=== PATIENT | female | born 1990 | race Caucasian/White ===

== ENCOUNTER 2016-07-28 19:44 | Emergency (ER) | payer OTHER ==
[~2016-07-28] VITALS: Ht 180.3 cm; Wt 111.1 kg
[~2016-07-28 19:44] MED LIST: AMOXIL500 MG PO; ANAPROX DS550 MG PO; BACTRIM DS 8001 TA1 PO; CYCLOBENZAPRINE10 MG PO; IBU-8800 MG PO; MACROBID100 M1 PO; MEDROL DOSEPAK4 MG PO; MOTRIN800 MG PO; NAPROSYN500 MG PO; NKHM; ORPHENADRINE C100 M1 PO; PARAFON FORTE500 MG PO; PREDNISONE20 MG PO; TRAMADOL HCL50 MG PO
[2016-07-28 20:15] LABS: BILIRUBIN NEGATIVE (NEGATIVE); BLOOD 2+ (NEGATIVE); CLARITY CLEAR (CLEAR); COLOR YELLOW (YELLOW); GLUCOSE NEGATIVE (NEGATIVE); KETONE NEGATIVE (NEGATIVE); LEUKO ESTERASE NEGATIVE (NEGATIVE); NITRITE NEGATIVE (NEGATIVE); PROTEIN 1+ (NEGATIVE); SPECIFIC GRAVITY >= 1.030 (1.005-1.030)
[2016-07-28] MEDS ORDERED: ULTRAM50 MG PO (20:40)
[2016-07-28] MEDS ORDERED: CYCLOBENZAPRINE10 MG PO (20:40)
[2016-07-28 20:41] LABS: BACTERIA TRACE; URINE REFLEX COMMENT YES (NO)
== END 2016-07-28 20:50 | disposition home or self-care (01) ==
LOC: ED 19:44
PROVIDERS: Nurse Practitioner Family
DX: M54.5 Low back pain (principal)

== ENCOUNTER 2016-08-21 12:08 | Emergency (ER) | payer OTHER ==
[~2016-08-21] VITALS: Ht 180.3 cm; Wt 112.9 kg
[~2016-08-21 12:08] MED LIST changes: +ULTRAM50 MG PO
[2016-08-21] MEDS ORDERED: AUGMENTIN 875875 MG PO (13:15)
[2016-08-21] MEDS ORDERED: Peridex 473 ML473 ML PO (13:15)
[2016-08-21] MEDS ORDERED: Motrin,Rufen800 MG PO (13:15)
== END 2016-08-21 13:24 | disposition home or self-care (01) ==
LOC: ED 12:08
DX: K08.89 Other specified disorders of teeth and supporting structures (principal)

== ENCOUNTER 2016-09-10 21:49 | Emergency (ER) | payer OTHER ==
[~2016-09-10] VITALS: Ht 180.3 cm; Wt 113.4 kg
[~2016-09-10 21:49] MED LIST changes: +AUGMENTIN 875875 MG PO; +Motrin,Rufen800 MG PO; +Peridex 473 ML473 ML PO
== END 2016-09-10 23:44 | disposition home or self-care (01) ==
LOC: ED 21:49
DX: S05.02XA Injury of conjunctiva and corneal abrasion without foreign body, left eye, initial encounter (principal); W22.8XXA Striking against or struck by other objects, initial encounter; Y93.89 Activity, other specified; Y92.9 Unspecified place or not applicable; Y99.9 Unspecified external cause status

== ENCOUNTER 2016-10-11 21:40 | Emergency (ER) | payer OTHER ==
[~2016-10-11] VITALS: Ht 180.3 cm; Wt 108.9 kg
[2016-10-11] MEDS ORDERED: Motrin,Rufen800 MG PO (22:17)
[2016-10-11] MEDS ORDERED: CYCLOBENZAPRINE5 M3 PO (22:17)
== END 2016-10-11 22:20 | disposition home or self-care (01) ==
LOC: ED 21:40
DX: G89.29 Other chronic pain (principal); M54.6 Pain in thoracic spine

== ENCOUNTER 2016-11-03 09:52 | Emergency (ER) | payer OTHER ==
[~2016-11-03] VITALS: Ht 177.8 cm; Wt 108.9 kg
[~2016-11-03 09:52] MED LIST changes: +CYCLOBENZAPRINE5 M3 PO
[2016-11-03] MEDS ORDERED: NAPROSYN500 MG PO (10:28)
[2016-11-03] MEDS ORDERED: AMOXICILLIN500 M2 PO (10:28)
== END 2016-11-03 10:52 | disposition home or self-care (01) ==
LOC: ED 09:52
DX: K08.89 Other specified disorders of teeth and supporting structures (principal)

== ENCOUNTER 2016-12-27 14:54 | Emergency (ER) | payer OTHER ==
[~2016-12-27] VITALS: Ht 175.2 cm; Wt 108.9 kg
[~2016-12-27 14:54] MED LIST changes: +AMOXICILLIN500 M2 PO
[2016-12-27 15:16] LABS: BILIRUBIN NEGATIVE (NEGATIVE); BLOOD TRACE-INTACT (NEGATIVE); CLARITY SL CLOUDY (CLEAR); COLOR YELLOW (YELLOW); GLUCOSE NEGATIVE (NEGATIVE); KETONE TRACE (NEGATIVE); LEUKO ESTERASE 1+ (NEGATIVE); NITRITE NEGATIVE (NEGATIVE); SPECIFIC GRAVITY 1.025 (1.005-1.030)
[2016-12-27 15:22] LABS: BACTERIA TRACE; EPITHELIAL CELLS 31-40; MUCOUS 2+
[2016-12-27] MEDS ORDERED: MACROBID100 M1 PO (16:39)
== END 2016-12-27 16:57 | disposition home or self-care (01) ==
LOC: ED 14:54
PROVIDERS: Physician Assistant
DX: N39.0 Urinary tract infection, site not specified (principal); F17.200 Nicotine dependence, unspecified, uncomplicated; Z33.1 Pregnant state, incidental

== ENCOUNTER 2017-07-31 10:11 | Emergency (ER) | payer OTHER ==
[~2017-07-31] VITALS: Ht 180.3 cm; Wt 104.3 kg
[2017-07-31] MEDS ORDERED: Peridex 473 ML473 ML PO (10:16)
[2017-07-31] MEDS ORDERED: PENICILLIN VK500 MG PO (10:16)
[2017-07-31] MEDS ORDERED: ZOFRAN4 MG PO (10:16)
[2017-07-31] MEDS ORDERED: NAPROSYN500 MG PO (10:16)
== END 2017-07-31 10:30 | disposition home or self-care (01) ==
LOC: ED 10:11
DX: K02.9 Dental caries, unspecified (principal); R03.0 Elevated blood-pressure reading, without diagnosis of hypertension; G89.29 Other chronic pain

== ENCOUNTER 2017-08-27 15:08 | Emergency (ER) | payer OTHER ==
[~2017-08-27] VITALS: Ht 170.1 cm; Wt 108.9 kg
[~2017-08-27 15:08] MED LIST changes: +PENICILLIN VK500 MG PO; +ZOFRAN4 MG PO
[2017-08-27] MEDS ORDERED: IBUPROFEN600 MG PO (15:33)
[2017-08-27] MEDS ORDERED: AUGMENTIN 875875 MG PO (15:33)
== END 2017-08-27 15:30 | disposition home or self-care (01) ==
LOC: ED 15:08
DX: K02.9 Dental caries, unspecified (principal)

== ENCOUNTER 2018-04-15 11:53 | Emergency (ER) | payer OTHER ==
[~2018-04-15] VITALS: Ht 180.3 cm; Wt 97.5 kg
[~2018-04-15 11:53] MED LIST changes: +IBUPROFEN600 MG PO
[2018-04-15 13:06] LABS: BASO % 0.2 % (0.0-1.0); EOS # 0.1 10*3/uL (0.0-0.4); EOS % 0.4 % (1.0-4.0); HEMATOCRIT 40.9 % (37.0-47.0); HEMOGLOBIN 13.7 g/dl (12.0-16.0); LYMPH # 0.9 10*3/uL (1.3-4.4); LYMPH % 5.8 % (27.0-41.0); MEAN CELL VOLUME 83.5 fl (81.0-99.0); MEAN CORPUSCULAR HGB CONC 33.5 g/dl (33.0-37.0); MEAN PLATELET VOLUME 10.5 fl (9.6-12.3); MONO # 0.7 10*3/uL (0.1-1.0); NEUT % 88.3 % (47.0-73.0); PLATELET COUNT AUTOMATED 180 10*3/uL (130-400); RED CELL DISTRI WIDTH 13.2 % (0-14.5); WHITE BLOOD COUNT 14.8 10*3/uL (4.8-10.8)
[2018-04-15 13:20] LABS: ALBUMIN 3.5 gm/dl (3.1-4.5); ALKALINE PHOSPHATASE 104 U/L (45-117); BUN 9 mg/dl (7-24); CHLORIDE 103 mmol/L (98-107); CREATININE 0.75 mg/dL (0.55-1.02); POTASSIUM 3.3 mmol/L (3.5-5.1); SGOT/AST 20 IU/L (3-35); SGPT/ALT 28 U/L (12-78); SODIUM 137 mmol/L (136-145); TOTAL PROTEIN 8.3 gm/dL (6.4-8.2)
[2018-04-15] MEDS ORDERED: PREDNISONE10 MG PO (14:41)
[2018-04-15] MEDS ORDERED: FLONASE ALLERG9.9 ML NAS (14:41)
[2018-04-15] MEDS ORDERED: CLARITIN10 MG PO (14:41)
== END 2018-04-15 14:45 | disposition home or self-care (01) ==
LOC: ED 11:53
PROVIDERS: Nurse Practitioner Family
DX: B27.90 Infectious mononucleosis, unspecified without complication (principal); R03.0 Elevated blood-pressure reading, without diagnosis of hypertension; G89.29 Other chronic pain; Z79.2 Long term (current) use of antibiotics; Z79.899 Other long term (current) drug therapy

== ENCOUNTER 2018-09-24 20:35 | Emergency (ER) | payer OTHER ==
[~2018-09-24] VITALS: Ht 180.3 cm; Wt 108.9 kg
[~2018-09-24 20:35] MED LIST changes: +CLARITIN10 MG PO; +FLONASE ALLERG9.9 ML NAS; +PREDNISONE10 MG PO
[2018-09-24] MEDS ORDERED: AMOXICILLIN500 M2 PO (20:41)
== END 2018-09-24 21:05 | disposition home or self-care (01) ==
LOC: ED 20:35
DX: H60.91 Unspecified otitis externa, right ear (principal); H92.02 Otalgia, left ear

== ENCOUNTER 2019-05-02 19:04 | Emergency (ER) | payer OTHER ==
[~2019-05-02] VITALS: Ht 180.3 cm; Wt 108.9 kg
[2019-05-02 20:27] LABS: HEMATOCRIT 39.1 % (37.0-47.0); HEMOGLOBIN 12.8 g/dl (12.0-16.0); MEAN CELL VOLUME 84.1 fl (81.0-99.0); MEAN CORPUSCULAR HGB 27.5 pg (27.0-31.0); MEAN CORPUSCULAR HGB CONC 32.7 g/dl (33.0-37.0); MEAN PLATELET VOLUME 10.7 fl (9.6-12.3); PLATELET COUNT AUTOMATED 165 10*3/uL (130-400); RED BLOOD COUNT 4.65 10*6/uL (4.10-5.10); RED CELL DISTRI WIDTH 13.2 % (0-14.5)
[2019-05-02 20:41] LABS: ALBUMIN 3.3 gm/dl (3.1-4.5); ALKALINE PHOSPHATASE 62 U/L (45-117); BUN 12 mg/dl (7-24); CHLORIDE 108 mmol/L (98-107); CREATININE 0.77 mg/dL (0.55-1.02); SGOT/AST 10 IU/L (3-35); SGPT/ALT 19 U/L (12-78); SODIUM 139 mmol/L (136-145); TOTAL PROTEIN 7.7 gm/dL (6.4-8.2)
[2019-05-02 20:50] LABS: BASOPHILS 1 % (0-1); BURR CELLS FEW; PLATELET SUFFICIENCY NORMAL (NORMAL); TOTAL CELLS COUNTED 100 #CELLS
[2019-05-02] MEDS ORDERED: OMNICEF300 MG PO (20:54)
== END 2019-05-02 21:20 | disposition home or self-care (01) ==
LOC: ED 19:04
PROVIDERS: Nurse Practitioner Family
DX: J03.90 Acute tonsillitis, unspecified (principal); G89.29 Other chronic pain; R11.2 Nausea with vomiting, unspecified; F17.200 Nicotine dependence, unspecified, uncomplicated; Z79.2 Long term (current) use of antibiotics; Z79.899 Other long term (current) drug therapy

== ENCOUNTER 2021-03-07 17:09 | Emergency (ER) | payer OTHER ==
[~2021-03-07] VITALS: Wt 104.3 kg
[~2021-03-07 17:09] MED LIST changes: +OMNICEF300 MG PO
== END 2021-03-07 17:31 | disposition left against medical advice (07) ==
LOC: ED 17:09
DX: R10.30 Lower abdominal pain, unspecified (principal); Z53.21 Procedure and treatment not carried out due to patient leaving prior to being seen by health care provider

== ENCOUNTER 2021-04-23 12:01 | Emergency (ER) | payer OTHER ==
[~2021-04-23] VITALS: Ht 180.3 cm; Wt 102.1 kg
[2021-04-23 12:18] LABS: BILIRUBIN Negative (Negative); BLOOD 3+ (Negative); CLARITY Turbid (Clear); COLOR Dark Yellow (Yellow); GLUCOSE Negative (Negative); KETONE Negative (Negative); LEUKO ESTERASE 2+ (Negative); NITRITE Positive (Negative); SPECIFIC GRAVITY 1.015 (1.001-1.030)
[2021-04-23 12:34] LABS: BACTERIA TRACE; EPITHELIAL CELLS 16-20; WBC TNTC wbc/hpf (0-5)
[2021-04-23] MEDS ORDERED: PYRIDIUM200 M1 PO (14:17)
[2021-04-23] MEDS ORDERED: SEPTDS PO (14:17)
== END 2021-04-23 14:29 | disposition home or self-care (01) ==
LOC: ED 12:01
PROVIDERS: Physician Assistant
DX: N39.0 Urinary tract infection, site not specified (principal)

== ENCOUNTER 2021-05-22 09:32 | Emergency (ER) | payer OTHER ==
[~2021-05-22] VITALS: Ht 180.3 cm; Wt 99.8 kg
[~2021-05-22 09:32] MED LIST changes: +PYRIDIUM200 M1 PO; +SEPTDS PO
[2021-05-22] MEDS ORDERED: PENICILLIN-VK500 MG PO (10:07)
== END 2021-05-22 10:16 | disposition home or self-care (01) ==
LOC: ED 09:32
DX: K08.89 Other specified disorders of teeth and supporting structures (principal)

== ENCOUNTER 2021-08-08 03:42 | Emergency (ER) | payer OTHER ==
[~2021-08-08] VITALS: Ht 180.3 cm; Wt 104.3 kg
[~2021-08-08 03:42] MED LIST changes: +PENICILLIN-VK500 MG PO
[2021-08-08 04:24] LABS: EOS % 0.5 % (1.0-4.0); HEMATOCRIT 38.7 % (37.0-47.0); LYMPH # 0.8 10*3/uL (1.3-4.4); LYMPH % 13.5 % (27.0-41.0); MEAN CELL VOLUME 82.2 fl (81.0-99.0); MEAN CORPUSCULAR HGB 27.6 pg (27.0-31.0); MEAN CORPUSCULAR HGB CONC 33.6 g/dl (33.0-37.0); MEAN PLATELET VOLUME 10.3 fl (9.6-12.3); MONO # 0.4 10*3/uL (0.1-1.0); MONO % 6.1 % (3.0-9.0); NEUT % 79.7 % (47.0-73.0); PLATELET COUNT AUTOMATED 163 10*3/uL (130-400); RED BLOOD COUNT 4.71 10*6/uL (4.10-5.10); RED CELL DISTRI WIDTH 12.2 % (0-14.5); WHITE BLOOD COUNT 6.2 10*3/uL (4.8-10.8)
[2021-08-08 04:45] LABS: ALKALINE PHOSPHATASE 58 U/L (45-117); BUN 12 mg/dl (7-24); CHLORIDE 108 mmol/L (98-107); LIPASE 40 U/L (73-393); POTASSIUM 3.2 mmol/L (3.5-5.1); SGOT/AST 12 IU/L (3-35); SGPT/ALT 15 U/L (12-78); SODIUM 137 mmol/L (136-145); TOTAL PROTEIN 7.2 gm/dL (6.4-8.2)
[2021-08-08 06:50] LABS: BILIRUBIN Negative (Negative); BLOOD 1+ (Negative); CLARITY Clear (Clear); COLOR Yellow (Yellow); GLUCOSE Negative (Negative); KETONE 1+ (Negative); LEUKO ESTERASE 1+ (Negative); NITRITE Negative (Negative); SPECIFIC GRAVITY 1.015 (1.001-1.030)
[2021-08-08 07:08] LABS: BACTERIA 1+; MUCOUS 2+
== END 2021-08-08 08:52 | disposition home or self-care (01) ==
LOC: ED 03:42
PROVIDERS: Emergency Medicine
DX: R10.11 Right upper quadrant pain (principal); R11.0 Nausea

== ENCOUNTER 2022-03-28 10:01 | Emergency (ER) | payer OTHER ==
[~2022-03-28] VITALS: Ht 180.3 cm; Wt 104.3 kg
[2022-03-28] MEDS ORDERED: AMOX-CLAV 875-1 EACH PO (10:21)
== END 2022-03-28 10:33 | disposition home or self-care (01) ==
LOC: ED 10:01
DX: K02.9 Dental caries, unspecified (principal)

== ENCOUNTER 2022-04-18 21:26 | Emergency (ER) | payer OTHER ==
[~2022-04-18] VITALS: Ht 180.3 cm; Wt 104.3 kg
[~2022-04-18 21:26] MED LIST changes: +AMOX-CLAV 875-1 EACH PO
[2022-04-18] MEDS ORDERED: PENICILLIN VK500 MG PO (21:38)
== END 2022-04-18 21:37 | disposition home or self-care (01) ==
LOC: ED 21:26
DX: K02.9 Dental caries, unspecified (principal); Z98.890 Other specified postprocedural states

== ENCOUNTER 2022-07-29 16:27 | Emergency (ER) | payer OTHER ==
[~2022-07-29] VITALS: Ht 180.3 cm; Wt 104.3 kg
[2022-07-29] MEDS ORDERED: AMOX-CLAV 875-1 EACH PO (18:15)
== END 2022-07-29 18:28 | disposition home or self-care (01) ==
LOC: ED 16:27
DX: J02.0 Streptococcal pharyngitis (principal)

== ENCOUNTER 2022-09-29 19:26 | Emergency (ER) | payer OTHER ==
[~2022-09-29] VITALS: Ht 180.3 cm; Wt 122.5 kg
[2022-09-29 20:03] LABS: BILIRUBIN Negative (Negative); BLOOD 2+ (Negative); CLARITY Cloudy (Clear); COLOR Yellow (Yellow); GLUCOSE Negative (Negative); KETONE Trace (Negative); LEUKO ESTERASE 3+ (Negative); NITRITE Positive (Negative); PH 5.5 (4.5-8.0)
[2022-09-29 20:14] LABS: BACTERIA 4+; WBC 16-20 wbc/hpf (0-5)
[2022-09-29 20:15] LABS: YEAST TRACE
[2022-09-29 20:35] LABS: BASO % 0.2 % (0.0-1.0); EOS # 0.1 10*3/uL (0.0-0.4); EOS % 1.2 % (1.0-4.0); HEMATOCRIT 34.8 % (37.0-47.0); LYMPH # 2.3 10*3/uL (1.3-4.4); LYMPH % 26.9 % (27.0-41.0); MEAN CELL VOLUME 85.1 fl (81.0-99.0); MEAN CORPUSCULAR HGB 28.4 pg (27.0-31.0); MEAN CORPUSCULAR HGB CONC 33.3 g/dl (33.0-37.0); MEAN PLATELET VOLUME 11.1 fl (9.6-12.3); MONO # 0.5 10*3/uL (0.1-1.0); MONO % 5.4 % (3.0-9.0); NEUT # 5.7 10*3/uL (2.3-7.9); NEUT % 65.8 % (47.0-73.0); PLATELET COUNT AUTOMATED 188 10*3/uL (130-400); RED BLOOD COUNT 4.09 10*6/uL (4.10-5.10); RED CELL DISTRI WIDTH 12.8 % (0-14.5); WHITE BLOOD COUNT 8.6 10*3/uL (4.8-10.8)
[2022-09-29 21:08] LABS: ALKALINE PHOSPHATASE 60 U/L (46-116); BUN 8 mg/dl (9-23); CHLORIDE 102 mmol/L (98-107); POTASSIUM 3.1 mmol/L (3.4-5.1); SGPT/ALT 10 U/L (10-49); TOTAL PROTEIN 7.2 gm/dL (6.0-8.0)
[2022-09-29] MEDS ORDERED: CEPHALEXIN500 M1 PO (21:22)
== END 2022-09-29 21:44 | disposition home or self-care (01) ==
LOC: ED 19:26
PROVIDERS: Physician Assistant Medical
DX: O23.41 Unspecified infection of urinary tract in pregnancy, first trimester (principal); O99.281 Endocrine, nutritional and metabolic diseases complicating pregnancy, first trimester; E87.6 Hypokalemia; Z3A.01 Less than 8 weeks gestation of pregnancy; Z20.2 Contact with and (suspected) exposure to infections with a predominantly sexual mode of transmission

== ENCOUNTER 2024-09-11 17:28 | Emergency (ER) | payer SELFPAY ==
[~2024-09-11] VITALS: Ht 180.3 cm; Wt 113.4 kg
[~2024-09-11 17:28] MED LIST changes: +CEPHALEXIN500 M1 PO
[2024-09-11] MEDS ORDERED: SODIUM CHLORIDE 0.9% 1,000 ML IV ONE (18:45)
[2024-09-11] MEDS ORDERED: Ondansetron Hydrochloride 4 MG/2 ML VIAL IV ONE (18:45)
[2024-09-11] MEDS ORDERED: IOHEXOL 300 MG/ML 100 ML VIAL IV ONE (19:00)
[2024-09-11 19:02] LABS: BASO # 0.0 10*3/uL (0.0-0.1); BASO % 0.1 % (0.0-1.0); EOS # 0.0 10*3/uL (0.0-0.4); EOS % 0.0 % (1.0-4.0); MEAN CELL VOLUME 85.8 fl (81.0-99.0); MEAN CORPUSCULAR HGB 29.6 pg (27.0-31.0); MEAN PLATELET VOLUME 10.1 fl (9.6-12.3); MONO # 0.8 10*3/uL (0.1-1.0); MONO % 6.2 % (3.0-9.0); NEUT # 11.3 10*3/uL (2.3-7.9); NEUT % 88.4 % (47.0-73.0); NUCLEATED RED BLOOD CELL 0.0 % (0.0-0.0); NUCLEATED RED BLOOD CELL 0.0 10*3/uL (0.0-0.0); PLATELET COUNT AUTOMATED 155 10*3/uL (130-400); RED CELL DISTRI WIDTH 12.5 % (0-14.5)
[2024-09-11 19:18] LABS: BILIRUBIN 1+ (Negative); BLOOD 3+ (Negative); CLARITY Turbid (Clear); COLOR Dark Yellow (Yellow); KETONE 2+ (Negative); LEUKO ESTERASE 2+ (Negative); NITRITE Positive (Negative); PH 5.5 (4.5-8.0); SPECIFIC GRAVITY 1.020 (1.001-1.030); UROBILINOGEN 1.0 E.U./dl (0.0-1.0)
[2024-09-11 19:25] LABS: BUN 6 mg/dl (9-23); SGPT/ALT 12 U/L (5-49)
[2024-09-11 20:17] LABS: BACTERIA 4+; EPITHELIAL CELLS 16-20; WBC TNTC wbc/hpf (0-5)
[2024-09-11 20:18] LABS: MUCOUS 1+
[2024-09-11] MEDS ORDERED: POTASSIUM CHLORIDE 20 MEQ TAB PO ONE (20:40)
[2024-09-11] MEDS ORDERED: Nitrofurantoin Monohydrate/N 100 MG CAP PO ONE (20:40)
[2024-09-11] MEDS ORDERED: PRENATAL MULTI1 EAC3 PO (20:53)
[2024-09-11] MEDS ORDERED: Ondansetron4 MG PO (20:53)
[2024-09-11] MEDS ORDERED: MACROBID100 M1 PO (20:53)
== END 2024-09-11 21:09 | disposition home or self-care (01) ==
LOC: ED 17:28
PROVIDERS: Nurse Practitioner Family
DX: O23.41 Unspecified infection of urinary tract in pregnancy, first trimester (principal); N39.0 Urinary tract infection, site not specified; R50.9 Fever, unspecified; R51.9 Headache, unspecified; R42 Dizziness and giddiness; R11.10 Vomiting, unspecified; Z3A.00 Weeks of gestation of pregnancy not specified